=== PATIENT | male | born 1975 | race Caucasian/White ===

== ENCOUNTER 2017-07-08 20:36 | Inpatient (IN) | payer SELFPAY ==
[2017-07-08 21:17] LABS: BASOPHILS 0.5 % (0-2); EOSINOPHILS 3.9 % (0-7); HEMATOCRIT 38.3 % (42.0-54.0); HEMOGLOBIN 13.5 g/dL (13.5-17.5); IMMATURE GRANULOCYTES 0.4 % (0-5); LYMPHOCYTES 37.6 % (15-50); MCH 31.9 pg (26.0-34.0); MCHC 35.2 g/dL (31.0-37.0); MCV 90.5 fL (80.0-100.0); MEAN PLATELET VOLUME 9.2 fL (7.4-10.4); MONOCYTES 7.1 % (2-11); NEUTROPHILS 50.5 % (40-80); PLATELET COUNT 216 10x3/uL (130-400); RBC 4.23 10x6/uL (4.20-6.10); RDW 12.9 % (11.5-14.5); WBC 7.7 10x3/uL (4.8-10.8)
[2017-07-08 21:31] LABS: ALBUMIN 3.1 g/dL (3.4-5.0); ALKALINE PHOSPHATASE 136 U/L (46-116); ALT (SGPT) 33 U/L (10-68); BILIRUBIN - TOTAL 0.25 mg/dL (0.2-1.3); CALC OSMOLALITY 272 mosm/kg (275-300); CALCIUM 8.9 mg/dL (8.5-10.1); CARBON DIOXIDE 25.1 mmol/L (21.0-32.0); CHLORIDE - SERUM 99 mmol/L (98-107); CREATININE - SERUM 0.8 mg/dL (0.6-1.3); GLUCOSE 245 mg/dL (74-106); POTASSIUM - SERUM 4.1 mmol/L (3.5-5.1); SODIUM 133 mmol/L (136-145); UREA NITROGEN 9 mg/dL (7-18); eGFR NON AFRICAN AMERICAN > 90 mL/min (90-120)
[2017-07-09 00:55] LABS: APPEARANCE CLEAR (CLEAR); COLOR YELLOW (YELLOW); GLUCOSE 50 mg/dL (NEGATIVE); KETONE NEGATIVE (NEGATIVE); NITRITE NEGATIVE (NEGATIVE); PROTEIN TRACE mg/dL (NEGATIVE); SPECIFIC GRAVITY 1.015 (1.005-1.020); UROBILINOGEN NORMAL (NORMAL)
[2017-07-09 00:56] LABS: BILIRUBIN NEGATIVE (NEGATIVE)
[2017-07-09 00:57] LABS: BACTERIA FEW /hpf (NONE SEEN); EPITHELIAL CELLS 0-5 /hpf (0-5); RED CELLS - URINE NONE SEEN /hpf (0-5); WHITE CELLS - URINE 0-5 /hpf (0-5)
--- NOTE | 2017-07-09 01:48 | NUR ---
PT ARRIVED ON UNIT VIA STRETCHER ESCORTED BY ER STAFF. TRANSFERRED TO BED AND POSITIONED FOR COMFORT. ORIENTED TO ROOM AND CALL LIGHT.
--- NOTE | 2017-07-09 02:06 | NUR ---
GAVE DILAUDID 1 MG IVP PER PT REQUEST FOR PAIN AT LEVEL 8/10. WILL MONITOR FOR EFFECTIVENESS.
[2017-07-09 02:24] VITALS: BP 121/68; BMI 30.6
--- NOTE | 2017-07-09 02:45 | NUR ---
GAVE SANDWICH TRAY, PUDDING, AND SODA PER PT REQUEST. WILL CONTINUE TO MONITOR FOR NEEDS.
--- NOTE | 2017-07-09 03:30 | NUR ---
GAVE PT WARM BATH CLOTHS TO [facility] PER PT REQUEST.
[2017-07-09] MEDS ORDERED: GLIPIZIDE10 MG PO (03:34)
[2017-07-09] MEDS ORDERED: GLUCOPHAGE1000 MG PO (03:34)
--- NOTE | 2017-07-09 03:38 | NUR ---
PAGED MARIONETTE PERFORMER PHYSICIAN PER PT REQUEST FOR BENADRYL FOR ITCHING. NO RASH SEEN, EXCEPT REDNESS FROM PT SCRATCHING.
[2017-07-09 04:00] VITALS: BP 115/60
--- NOTE | 2017-07-09 05:37 | NUR ---
RECEIVED ORDER FOR BENADRYL 25 MG IVP X1 DOSE FOR C/O ITCHING.
[2017-07-09 05:43] LABS: BASOPHILS 0.3 % (0-2); EOSINOPHILS 3.8 % (0-7); HEMATOCRIT 35.3 % (42.0-54.0); IMMATURE GRANULOCYTES 0.2 % (0-5); LYMPHOCYTES 43.2 % (15-50); MCH 31.1 pg (26.0-34.0); MCV 91.5 fL (80.0-100.0); MEAN PLATELET VOLUME 9.5 fL (7.4-10.4); MONOCYTES 6.8 % (2-11); NEUTROPHILS 45.7 % (40-80); PLATELET COUNT 206 10x3/uL (130-400); RBC 3.86 10x6/uL (4.20-6.10); RDW 13.1 % (11.5-14.5)
[2017-07-09 05:47] LABS: CALC OSMOLALITY 276 mosm/kg (275-300); CALCIUM 8.6 mg/dL (8.5-10.1); CARBON DIOXIDE 25.7 mmol/L (21.0-32.0); CHLORIDE - SERUM 101 mmol/L (98-107); CREATININE - SERUM 0.9 mg/dL (0.6-1.3); GLUCOSE 224 mg/dL (74-106); SODIUM 136 mmol/L (136-145); UREA NITROGEN 8 mg/dL (7-18); eGFR NON AFRICAN AMERICAN > 90 mL/min (90-120)
[2017-07-09 08:52] VITALS: BP 104/61
--- NOTE | 2017-07-09 10:34 | NUR ---
RATIONALE FOR SCD'S EXPLAINED. REFUSED SCD'S
[2017-07-09 12:06] VITALS: BP 122/59
--- NOTE | 2017-07-09 14:26 | NUR ---
REPORT RECEIVED FROM GLYNN JONES.
--- NOTE | 2017-07-09 16:13 | NUR ---
FSBS 199. HUMALOG 4 UNITS SUBQ TO LEFT ARM. FAMILY IN ROOM. CALL LIGHT IN REACH.
--- NOTE | 2017-07-09 16:22 | NUR ---
Patient Name: RAFI JEAN Admission Status: ER Accout number: [id number] Admission Date: 07-09-2017 : 1975 Admission Diagnosis: Attending: ANNETTE BUCIO Current LOS: 1 Anticipated DC Date: 07-10-2017 Planned Disposition: Home Primary Insurance: UNINSURED DISCOUNT PLAN Discharge Planning Comments: CM MET WITH PATIENT REGARDING D/C NEEDS AND PLANS. PATIENT STATED HE LIVES WITH HIS FAMILY AND THEY HAVE NO MONEY SINCE HE LOST HIS JOB FROM HIS HOSPITAL STAY. PATIENTS DELANEY WILL DRIVE PATIENT HOME AT DISCHARGE. PATIENT HAS NO PCP AND WILL USE [facility] [address] FOR PHARMACY NEEDS. PATIENT STATED HE IS INDEPENDENT WITH HIS CARE AND HAS NO DME AT HOME. PATIENT ASKED FOR SUPPLIES FOR HIS WOUND AND IT WAS APPROVED FOR HIS DISCHARGE. DR. PEREZ WANTS TO KEEP PATIENT ONE MORE DAY FOR ABX. THERAPY BEFORE D/C. CM CALLED BUSINESS OFFICE AND MEDICAID IS IN THE PROCESS. CM WILL CONTINUE TO FOLLOW PATIENT WITH D/C NEEDS AND PLANS. PCP NONE [facility] [address]- [phone] DELANEY -- (NO PHONE) Teaching Music Lessons: Kimberlee Tobar Is the patient Alert and Oriented? Yes 0 * How many steps to enter\exit or inside your home? 2 0 * PCP none 0 * Pharmacy [facility] [address] 0 * Preadmission Environment Home with Family 0 * ADLs Independent 0 * Equipment None 0 * List name and contact numbers for known caregivers / representatives who currently or will assist patient after discharge: DELANEY (NO PHONE) 0 * Community resources currently utilized None 0 * Additional services required to return to the preadmission environment? Yes 0 * Can the patient safely return to the preadmission environment? Yes 0 * Has this patient been hospitalized within the prior 30 days at any hospital? Yes 0 Grand Total: 0
[2017-07-09 16:23] VITALS: BP 110/51
--- NOTE | 2017-07-09 18:19 | NUR ---
XIAO HAN. NO CHANGES IN INITIAL ASSESSMENT. CALL LIGHT IN REACH. STILL REFUSES SCDs. WILL CONTINUE WITH PLAN OF CARE.
--- NOTE | 2017-07-09 19:15 | NUR ---
REPORT RECEIVED. SHIFT ASSESSMENT COMPLETED PER FLOW SHEET. PT LAYING IN BED, AWAKE AND ALERT. PT WEARS GLASSES. RADIAL AND PEDAL PULSES PALPABLE. BS ACTIVE X4. INCISION NOTED TO GROIN AND LT UPPER THIGH, AREA REDDENED. LT WRIST PIV PATENT. PT ABLE TO FOLLOW COMMANDS. DENIES NEEDS AT THIS TIME. CALL LIGHT WITHIN REACH. BED IN LOWEST POSITION.SEE FLOW SHEET FOR COMPLETE ASSESSMENT. WILL CONTINUE TO MONITOR.
--- NOTE | 2017-07-09 22:01 | NUR ---
FAMILY AT BEDSIDE. PT COMPLAINING OF PAIN AT INCISION SITE. PRN HYDROMORPHONE GIVEN. DENIES FURTHER NEEDS. WILL CONTINUE TO MONITOR.
--- NOTE | 2017-07-09 23:00 | NUR ---
PT WRECKING MECHANIC LIGHT. DIET COKE PROVIDED PER REQUEST. DENIES FURTHER NEEDS. CALL LIGHT WITHIN REACH. BED IN LOWEST POSITION. WILL CONTINUE TO MONITOR.
--- NOTE | 2017-07-10 00:24 | NUR ---
MEDS ADMINISTERED PER EMAR, SEE EMAR FOR DETAILS. DENIES NEEDS AT THIS TIME. CALL LIGHT WITHIN REACH. BED IN LOWEST POSITION. WILL CONTINUE TO MONITOR.
--- NOTE | 2017-07-10 00:50 | NUR ---
PT REAL ESTATE APPRAISER LIGHT, SANDWICH TRAY PROVIDED PER REQUEST. DENIES FURTHER NEEDS. CALL LIGHT WITHIN REACH. BED IN LOWEST POSITION. WILL CONTINUE TO MONITOR.
--- NOTE | 2017-07-10 03:00 | NUR ---
PT LAYING IN BED RESTING. NO DISTRESS NOTED. FAMILY AT BEDSIDE. WILL CONTINUE TO MONITOR.
[2017-07-10 04:00] VITALS: BP 121/70
--- NOTE | 2017-07-10 05:00 | NUR ---
PT LAYING IN BED RESTING, NO DISTRESS NOTED. WILL CONTINUE TO MONITOR.
--- NOTE | 2017-07-10 06:13 | NUR ---
PT LAYING IN BED, MEDS ADMINISTERED PER EMAR, SEE FOR DETAILS. DIET SODA AND CUP OF ICE PROVIDED PER REQUEST. DENIES FURTHER NEEDS. WILL CONTINUE TO MONITOR.
[2017-07-10 06:27] LABS: BASOPHILS 0.5 % (0-2); EOSINOPHILS 4.4 % (0-7); HEMATOCRIT 36.9 % (42.0-54.0); HEMOGLOBIN 12.5 g/dL (13.5-17.5); IMMATURE GRANULOCYTES 0.2 % (0-5); LYMPHOCYTES 36.3 % (15-50); MCH 30.9 pg (26.0-34.0); MCHC 33.9 g/dL (31.0-37.0); MCV 91.1 fL (80.0-100.0); MEAN PLATELET VOLUME 9.4 fL (7.4-10.4); MONOCYTES 9.2 % (2-11); NEUTROPHILS 49.4 % (40-80); PLATELET COUNT 207 10x3/uL (130-400); RBC 4.05 10x6/uL (4.20-6.10); RDW 13.1 % (11.5-14.5); WBC 6.2 10x3/uL (4.8-10.8)
[2017-07-10 06:53] LABS: ALKALINE PHOSPHATASE 134 U/L (46-116); ALT (SGPT) 40 U/L (10-68); BILIRUBIN - TOTAL 0.27 mg/dL (0.2-1.3); CALC OSMOLALITY 272 mosm/kg (275-300); CALCIUM 8.9 mg/dL (8.5-10.1); CARBON DIOXIDE 25.9 mmol/L (21.0-32.0); CHLORIDE - SERUM 102 mmol/L (98-107); CREATININE - SERUM 0.7 mg/dL (0.6-1.3); POTASSIUM - SERUM 4.2 mmol/L (3.5-5.1); SODIUM 136 mmol/L (136-145); UREA NITROGEN 9 mg/dL (7-18); eGFR NON AFRICAN AMERICAN > 90 mL/min (90-120)
[2017-07-10 06:54] LABS: GLUCOSE 139 mg/dL (74-106)
--- NOTE | 2017-07-10 07:20 | NUR ---
RESTING QUIETLY IN BED. DENIES ANY NEEDS AT THIS TIME. FAMILY AT BEDSIDE.
--- NOTE | 2017-07-10 09:00 | NUR ---
ASSESSMENT COMPLETE. IV TO L WRIST PATENT. CONTACT ISOLATION. OPEN AREA NOTED TO L GROIN AND BASE OF PENIS. DENIES ANY NEEDS AT THIS TIME. FAMILY AT BEDSIDE.
[2017-07-10 09:18] VITALS: BP 118/69
[2017-07-10] MEDS ORDERED: HYDROCODONE-APA1 TAB PO (11:59)
[2017-07-10] MEDS ORDERED: FLORAJEN3 CAPS460 MG PO (12:13)
[2017-07-10] MEDS ORDERED: CLEOCIN HCL300 MG PO (12:14)
[2017-07-10] MEDS ORDERED: VENTOLIN HFA18 GM INH (12:15)
[2017-07-10 12:32] VITALS: BP 119/71
--- NOTE | 2017-07-10 13:20 | NUR ---
CM REASSESSMENT NOTE: PATIENT IS DISCHARGING HOME/ DRIVING. SUPPLIES (WOUND CARE) APPROVED FOR PATIENT. PATIENT WAS SEEN BY OUR OFFICE FOR MEDICAID AND IT IS IN THE WORKS. PATIENT WAS GIVEN INFORMATION REGARDING DISABILITY APPLICATIONS. PATIENT HAS NO OTHER NEEDS FOR DISCHARGE.
--- NOTE | 2017-07-10 13:30 | NUR ---
DRESSING SUPPLIES WERE GIVEN TO PATIENT YESTERDAY BY DAY NURSE.
--- NOTE | 2017-07-10 13:33 | NUR ---
IV DC'D WITH TIP INTACT. COVERED WITH 2X2 GAUZE AND TAPE. TOLERATED WELL. DISCHARGE INSTRUCTIONS REVIEWED WITH PT. VERBAL AND WRITTEN ACKOWLEDGEMENT RETURNED. WRITTEN SCRIPT FOR NORCO 10/325MG #20 GIVEN TO PT. BRTI/BONY WITNESSED.
--- NOTE | 2017-07-10 13:45 | NUR ---
DC'D HOME WITH FAMILY. ESCORTED TO VEHICLE BY VOLUNTEER VIA WC WITH BELONGINGS.
--- NOTE | 2017-07-11 14:00 | CN ---
PATIENT NAME:RAFI JEAN MEDICAL RECORD: [id number] : [birth year] LOCATION:[id number] ADMIT DATE: 07/09/17 ACCOUNT: [id number] CONSULTING PHYSICIAN: KANE MOROCHO MD REFERRING PHYSICIAN: ANNETTE PEREZ MD DATE OF CONSULTATION: 07/09/2017 CHIEF COMPLAINT: Cellulitis. HISTORY OF PRESENT ILLNESS: I have personally seen the patient. I have discussed the patient with the [facility], [place] nurse practitioner. The patient is an unreliable historian. Reportedly, he had some type of groin infection out west and this was debrided. This included debridement of his penis as well as scrotum. 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 I note no drainage. He does have cellulitis, but this could be a normal amount of reactive cellulitis. He has a normal white count. This patient states that he used to be a diabetic, but is not any longer. He does have elevated blood sugars, so it appears that his diabetes did not go away. Palpation aggravates. Nothing alleviates. I have personally discussed this case with Dr. Roca. I have recommended a urology consultation because most of the scarring involves the penis and the scrotum, as well as the left groin near the cord structures. This is a consultation note addendum. For the typed portion of the consult note, please see the chart. This includes the past medical and surgical history, allergies, family history, as well as social history. REVIEW OF SYSTEMS: Unreliable in this patient. PHYSICAL EXAMINATION: GENERAL: The patient appears acutely ill. Also appears chronically ill. VITAL SIGNS: Reviewed. EARS: External ears appear normal. EYES: Extraocular movements are intact. NECK: Trachea is midline. CHEST: No intercostal retractions. PULMONARY: Nonlabored, no stridor. ABDOMEN: No peritonitis. GENITOURINARY: As described above. INTEGUMENT: Erythema, no drainage involving the aforementioned structures. PSYCHIATRIC: Anxious affect. NEUROLOGIC: Answers questions appropriately. BACK: No thoracic kyphosis. LYMPHATICS: No lymphangitic streaking of the exposed extremities. IMPRESSION: Cellulitis, but I note no necrosis or purulent drainage. PLAN: Urologic consultation. TRANSINT:[id number] Voice Confirmation ID: [id number] DOCUMENT ID: [id number] CONSULT REPORT [id number] RAFI JEAN, KANE WORTHY at 1400 CC: [id number] DICTATION DATE: 07/09/171821 HOUSEKEEPER HEAD: 07/09/172038 DIS IN 07/10/17 [id number] [place] [address]
== END 2017-07-10 13:45 | disposition home or self-care (01) | DRG 863 ==
LOC: D.ER 20:36 → D.MS 07-09 00:22
PROVIDERS: Family Medicine; ADMIT Family Medicine
DX: T81.4XXA Infection following a procedure, initial encounter (principal); F17.203 Nicotine dependence unspecified, with withdrawal; L03.319 Cellulitis of trunk, unspecified; E11.65 Type 2 diabetes mellitus with hyperglycemia; I10 Essential (primary) hypertension; Z85.47 Personal history of malignant neoplasm of testis